=== PATIENT | female | born 1995 | race Two or more races ===

== ENCOUNTER 2022-12-19 06:25 | Emergency (ER) | payer MEDICAID ==
[~2022-12-19] VITALS: Ht 162.6 cm; Wt 115.3 kg
[2022-12-19 06:44] VITALS: BP 121/82
[2022-12-19] MEDS ORDERED: cefTRIAXone SOD 1,000 MG VL IM ONE (07:45)
[2022-12-19] MEDS ORDERED: PENI500T2 PO (08:26)
[2022-12-19] MEDS ORDERED: LIDO2SOL23 MT (08:26)
== END 2022-12-19 08:30 | disposition home or self-care (01) ==
LOC: ER 06:25
DX: J03.00 Acute streptococcal tonsillitis, unspecified (principal)
CPT/HCPCS: 87880; 96372; 99283; J0696